=== PATIENT | female | born 1950 | race Caucasian/White ===

== ENCOUNTER 2017-03-08 18:56 | Emergency (ER) | payer OTHER ==
[~2017-03-08] VITALS: Ht 167.6 cm; Wt 54.4 kg
[2017-03-08 21:50] VITALS: BP 150/82
== END 2017-03-08 21:50 | disposition home or self-care (01) ==
LOC: ED 18:56
DX: S93.401A Sprain of unspecified ligament of right ankle, initial encounter (principal); X58.XXXA Exposure to other specified factors, initial encounter; Y93.89 Activity, other specified; Y92.89 Other specified places as the place of occurrence of the external cause; Y99.8 Other external cause status
CPT/HCPCS: J1885